=== PATIENT | male | born 1985 | race Two or more races ===

== ENCOUNTER 2018-01-03 20:16 | Emergency (ER) | payer MEDICAID ==
[~2018-01-03] VITALS: Ht 185.4 cm; Wt 111.1 kg
[2018-01-03 20:46] VITALS: BP 110/74
--- NOTE | 2018-01-03 21:01 | Emergency Room Report ---
History of Present Illness General Chief Complaint: Abdominal Pain Source: Patient Present Illness HPI This is a 32-year-old male with no significant past medical history. He presents with chief complaint of right flank pain that been ongoing for months. He said he was seen at [place] and was diagnosed with a kidney stone. He said pain never went away but came back today. He is a poor historian. No hematuria. Pain is 7 out of 10. No nausea no vomiting. No diarrhea. Nothing made it better. Nothing made it worse. Allergies: Coded Allergies: No Known Allergies (Unverified , 01/03/18) Patient History Past Medical History: see triage record, old chart reviewed Past Surgical History: none Pertinent Family History: none Social History: Denies: smoking Immunizations: other Reviewed Nursing Documentation: PMH: Agreed; PSxH: Agreed Nursing Documentation-PMH Past Medical History: No Stated History Review of Systems Eye: Denies: eye pain, blurred vision ENT: Denies: ear pain, nose congestion, throat swelling Respiratory: Denies: cough, shortness of breath Cardiovascular: Denies: chest pain, palpitations Gastrointestinal: Reports: abdominal pain; Denies: diarrhea, nausea, vomiting Musculoskeletal: Denies: back pain, joint pain Skin: Denies: rash Neurological: Denies: headache, numbness Endocrine: Denies: increased thirst, increased urine Hematologic/Lymphatic: Denies: easy bruising All Other Systems: negative except mentioned in HPI Physical Exam Vital Signs Date Time Temp Pulse Resp B/P (MAP) Pulse Ox O2 Delivery O2 Flow Rate FiO2 01/03/18 20:30 98.3 76 18 110/74 94 Room Air 98.2 vitals normal Sp02 EP Interpretation: reviewed, normal General Appearance: well appearing, no apparent distress, alert, obese Head: normocephalic, atraumatic Eyes: bilateral eye PERRL, bilateral eye EOMI ENT: hearing grossly normal, normal pharynx Neck: full range of motion, supple, no meningismus Respiratory: chest non-tender, lungs clear, normal breath sounds Cardiovascular #1: regular rate, rhythm, no murmur Gastrointestinal: normal bowel sounds, non tender, no mass, no organomegaly, no bruit, non-distended Musculoskeletal: back normal, gait/station normal, normal range of motion Psychiatric: mood/affect normal Skin: warm/dry Medical Decision Making Diagnostic Impression: Primary Impression: Abdominal pain of unknown etiology ER Course Patient with abdominal pain. Unknown etiology. This been going on for at least a year according to his mom. We'll discharge home with follow-up. No evidence of an acute abdomen. CT/MRI/US Diagnostic Results CT/MRI/US Diagnostic Results : Imaging Test Ordered: CT abdomen and pelvis Last Vital Signs Date Time Temp Pulse Resp B/P (MAP) Pulse Ox O2 Delivery O2 Flow Rate FiO2 01/03/18 20:46 98.2 76 18 110/74 94 Room Air 98.2 Status: improved Disposition: HOME, SELF-CARE Condition: Stable Scripts Ibuprofen* (MOTRIN*) 600 Mg Tablet 600 MG ORAL Q8H PRN for For Pain, #30 TAB 0 Refills Prov: YAMILE PINEDA M.D. 01/03/18 Patient Instructions: Abdominal Pain, Adult Additional Instructions: follow-up with your DrNessa in 7 days. 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 Return if worse. YAMILE PINEDA M.D. Jan 03, 2018 21:01
[2018-01-03 21:11] LABS: APPEARANCE,URINE CLEAR; BILIRUBIN, URINE NEGATIVE (NEGATIVE); GLUCOSE, URINE (UA) NEGATIVE (NEGATIVE); KETONES,URINE NEGATIVE (NEGATIVE); LEUKOCYTE ESTERASE ,URINE 1+ (NEGATIVE); NITRITE,URINE NEGATIVE (NEGATIVE); PH,URINE 6 (4.5-8.0); PROTEIN,URINE NEGATIVE (NEGATIVE); UROBILINOGEN,URINE 4 MG/DL (0.0-1.0)
[2018-01-03 21:18] LABS: COLOR,URINE YELLOW
[2018-01-03] MEDS ORDERED: IBUPROFEN600 MG ORAL (22:57)
[2018-01-03 23:03] VITALS: BP 136/88
[2018-01-03 23:04] VITALS: BP 136/88
--- NOTE | 2018-01-04 09:27 | Diagnostic Imaging Report ---
Indication: Right-sided abdominal pain Technique: Spiral acquisitions obtained through the abdomen and pelvis. No oral contrast utilized, per emergency room physician request No IV contrast utilized, per emergency room physician request.. Multiplanar reconstructions were generated. Total dose length product 1168.58 mGycm. CTDIvol(s) 19.95 mGy. Dose reduction achieved using automated exposure control Comparison: None Findings: Normal appendix. No evidence of diverticulosis or diverticulitis. No small bowel distention. 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 No free or loculated intraperitoneal air or fluid. Distal esophagus, stomach, duodenum are unremarkable. Lack of IV contrast limits assessment of the solid organs. The liver is diffusely markedly hypoattenuating, consistent with diffuse fatty change. No focal abnormality. The gallbladder is nondistended. Bile ducts are nondilated. The pancreas, spleen, adrenals, right kidney are unremarkable. The left kidney demonstrates a 1.5 cm interpolar region cyst. It also demonstrates 3 lower pole calyceal calculi, largest measuring 5 mm in diameter. No ureteral calculi, hydronephrosis, or hydroureter demonstrated. The lung bases demonstrate minimal posterior dependent atelectasis. The bones are unremarkable Impression: No acute abnormality Colonic interposition, also known as Chilaiditi sign. This can rarely be a cause of Chilaiditi syndrome, which presents with abdominal pain, nausea, vomiting, and constipation. Correlate with clinical findings Nonobstructive left lower pole renal calculi Hepatic steatosis This agrees with the preliminary interpretation provided overnight by [facility]. The CT scanner at [facility] is accredited by the [employer] and the scans are performed using protocols designed to limit radiation exposure to as low as reasonably achievable to attain images of sufficient resolution adequate for diagnostic evaluation.
== END 2018-01-03 23:05 | disposition home or self-care (01) ==
LOC: EMR 21:09
DX: R10.9 Unspecified abdominal pain (principal); Z87.442 Personal history of urinary calculi
CPT/HCPCS: 74176; 81003; 99284